=== PATIENT | male | born 1990 | race American Indian/Alaskan Native ===

== ENCOUNTER 2018-09-10 14:43 | Emergency (ER) | payer MEDICAID ==
--- NOTE | 2018-09-10 15:07 | Event Note ---
ED Screening Note Date of service: 09/10/18 Time: 15:04 ED Screening Note: This is a 28 y.o. M. that presents to the ER with left ankle pain and discoloration to left plantar foot x 1 week. He also reports right shoulder pain. This initial assessment/diagnostic orders/clinical plan/treatment(s) is/are subject to change based on patients health status, clinical progression and re- assessment by fellow clinical providers in the ED. Further treatment and workup at subsequent clinical providers discretion. Patient/guardian urged not to elope from the ED as their condition may be serious if not clinically assessed and managed. Initial orders include: XR right shoulder and left ankle
--- NOTE | 2018-09-10 16:17 | XRay Report ---
RIGHT SHOULDER 3 VIEWS INDICATION / CLINICAL INFORMATION: pain and swelling. COMPARISON: None available. FINDINGS: No significant skeletal abnormality Signer Name: Skinny Campbell MD [facility] Signed: 09/10/2018 4:13 PM Workstation Name: [id number]
--- NOTE | 2018-09-10 16:18 | XRay Report ---
LEFT ANKLE 3 VIEWS INDICATION / CLINICAL INFORMATION: pain and swelling lateral. COMPARISON: None available. FINDINGS: Diffuse soft tissue edema. No other significant skeletal abnormality. Signer Name: Skinny Campbell MD [employer] Signed: 09/10/2018 4:14 PM Workstation Name: [id number]
[2018-09-10] MEDS ORDERED: BOOSTRIX IM ONE (17:09)
--- NOTE | 2018-09-10 17:15 | Emergency Department Report ---
ED Extremity Problem HPI - General Chief complaint: Extremity Problem,Nontraumatic Stated complaint: LT ANKLE/FOOT PAIN/RT SHOULDER PAIN Time Seen by Provider: 09/10/18 15:04 Source: patient Mode of arrival: Ambulatory Limitations: No Limitations - History of Present Illness Initial comments: Patient is a 28 yo male who presents the emergency room with complaints of left ankle pain that began last week. He states that he was playing basketball and he jumped up and came back down and had an inversion injury. He states he has sprained this ankle in the past. He currently has an ankle brace on. He has not seen anyone for this injury. He has been ambulatory. He is also complaining of right shoulder pain that began a week ago. Denies any fall or injury. He states he just woke up with the pain after "sleeping wrong". He was also concerned about a blister on the bottom of his left foot. He denies any fever, drainage, redness. PMHx of schizophrenia. No allergies to medications. - Related Data Previous Rx's Medication Instructions Recorded Last Taken Type Famotidine [Pepcid] 20 mg PO BID #40 tablet 08/24/14 Unknown Rx Hyoscyamine Subl [Levsin Sl 0.125] 0.125 mg SL Q4HR PRN #20 tablet 08/24/14 Unknown Rx Promethazine [Phenergan TAB] 25 mg PO Q6HR PRN #20 tab 08/24/14 Unknown Rx Baclofen [Lioresal] 5 mg PO QHS PRN #10 tab 09/10/18 Unknown Rx Naproxen [EC-Naprosyn] 500 mg PO BID PRN #20 tablet. 09/10/18 Unknown Rx Allergies Allergy/AdvReac Type Severity Reaction Status Date / Time No Known Allergies Allergy Unverified 08/24/14 11:54 ED Review of Systems ROS: Stated complaint: LT ANKLE/FOOT PAIN/RT SHOULDER PAIN Other details as noted in HPI Comment: All other systems reviewed and negative ED Past Medical Hx - Past Medical History Hx Psychiatric Treatment: Yes (schizophrenia) - Surgical History Additional Surgical History: hernia repair - Social History Smoking Status: Never Smoker Substance Use Type: None - Medications Home Medications: Home Medications Medication Instructions Recorded Confirmed Last Taken Type Famotidine [Pepcid] 20 mg PO BID #40 tablet 08/24/14 Unknown Rx Hyoscyamine Subl [Levsin Sl 0.125] 0.125 mg SL Q4HR PRN #20 tablet 08/24/14 Unknown Rx Promethazine [Phenergan TAB] 25 mg PO Q6HR PRN #20 tab 08/24/14 Unknown Rx Baclofen [Lioresal] 5 mg PO QHS PRN #10 tab 09/10/18 Unknown Rx Naproxen [EC-Naprosyn] 500 mg PO BID PRN #20 tablet. 09/10/18 Unknown Rx ED Physical Exam - General Limitations: No Limitations General appearance: alert, in no apparent distress - Head Head exam: Present: atraumatic, normocephalic - Eye Eye exam: Present: normal appearance - ENT ENT exam: Present: mucous membranes moist - Extremities Exam Extremities exam: Present: other (TTP over the left lateral ankle with edema present, FROM of the left ankle, discomfort with flexion and internal rotation, neurovascularly intact, mild TTP over the right trapezius, FROM of the right shoulder, no AC joint tenderness, no sulcus sign, clavicles are equal, neurovacularly intact) - Neurological Exam Neurological exam: Present: alert, oriented X3 - Psychiatric Psychiatric exam: Present: normal affect, normal mood - Skin Skin exam: Present: warm, dry, intact, other (small hematoma to the dorsum of left foot, left big toe nail is cut to the quick, no drainage, no pus, no erythema ) ED Course Vital Signs 09/10/18 09/10/18 15:04 17:51 Temperature 98.5 F 97.9 F Pulse Rate 64 56 L Respiratory 18 18 Rate Blood Pressure 121/70 Blood Pressure 107/57 [Left] O2 Sat by Pulse 96 99 Oximetry ED Medical Decision Making - Radiology Data Radiology results: report reviewed RIGHT SHOULDER 3 VIEWS INDICATION / CLINICAL INFORMATION: pain and swelling. COMPARISON: None available. FINDINGS: No significant skeletal abnormality Signer Name: Skinny Campbell MD [facility] Signed: 09/10/2018 4:13 PM Workstation Name: [id number] Transcribed By: MS Dictated By: Skinny Campbell MD Electronically Authenticated By: Skinny Campbell MD Signed Date/Time: 09/10/18 1613 LEFT ANKLE 3 VIEWS INDICATION / CLINICAL INFORMATION: pain and swelling lateral. COMPARISON: None available. FINDINGS: Diffuse soft tissue edema. No other significant skeletal abnormality. Signer Name: Skinny Campbell MD [facility] Signed: 09/10/2018 4:14 PM Workstation Name: [email or web address] Transcribed By: MS Dictated By: Skinny Campbell MD Electronically Authenticated By: Skinny Campbell MD Signed Date/Time: 09/10/18 6004 - Medical Decision Making Patient is a 28 yo male who presents the emergency room with complaints of left ankle pain that began last week. He states that he was playing basketball and he jumped up and came back down and had an inversion injury. He states he has sprained this ankle in the past. He currently has an ankle brace on. He has not seen anyone for this injury. He has been ambulatory. He is also complaining of right shoulder pain that began a week ago. Denies any fall or injury. He states he just woke up with the pain after "sleeping wrong". He was also concerned about a blister on the bottom of his left foot. He denies any fever, drainage, redness. PMHx of schizophrenia. No allergies to medications. on exam: TTP over the left lateral ankle with edema present, FROM of the left ankle, discomfort with flexion and internal rotation, neurovascularly intact, mild TTP over the right trapezius, FROM of the right shoulder, no AC joint tenderness, no sulcus sign, clavicles are equal, neurovacularly intact, small hematoma to the dorsum of left foot, left big toe nail is cut to the quick, no drainage, no pus, no erythema, no sings of infection, appears to be just small amount of blood under the skin. XR right shoulder: No significant skeletal abnormality. XR left ankle: Diffuse soft tissue edema. No other significant skeletal abnormality. pt placed in ankle stirrup splint. given prescription for baclofen and naproxen. advised to please take medication as prescribed. do not drive or operate heavy machinery while taking medication. follow up with a primary care doctor and orthopedic doctor in the next 2-3 days. return to the emergency room for any new or worsening symptoms. - Differential Diagnosis strain, sprain, fx, dislocation Critical care attestation.: If time is entered above; I have spent that time in minutes in the direct care of this critically ill patient, excluding procedure time. ED Disposition Clinical Impression: Edema of left ankle Left ankle pain Qualifiers: Chronicity: acute Qualified Code(s): M25.572 - Pain in left ankle and joints of left foot Right shoulder pain Qualifiers: Chronicity: acute Qualified Code(s): M25.511 - Pain in right shoulder Disposition: TO HOME OR SELFCARE Is pt being admited?: No Does the pt Need Aspirin: No Condition: Stable Instructions: Ankle Sprain (ED), Shoulder Sprain (ED), Ankle Stirrup Splint (ED) Additional Instructions: please take medication as prescribed. do not drive or operate heavy machinery while taking medication. follow up with a primary care doctor and orthopedic doctor in the next 2-3 days. return to the emergency room for any new or worsening symptoms. Prescriptions: Baclofen [Lioresal] 5 mg PO QHS PRN #10 tab PRN Reason: Muscle Spasm Naproxen [EC-Naprosyn] 500 mg PO BID PRN #20 tablet.dr FERRARO Reason: pain Referrals: [facility] MD AMBERLY [Primary Care Provider] - 2-3 Days RENZO GUZMÁN MD [Staff Physician] - 2-3 Days Time of Disposition: 17:17 Print Language: LUX[place]
[2018-09-10 17:53] VITALS: BP 107/57
== END 2018-09-10 17:53 | disposition home or self-care (01) ==
LOC: ED 14:43
DX: S90.32XA Contusion of left foot, initial encounter (principal); R60.0 Localized edema; M25.511 Pain in right shoulder; F20.9 Schizophrenia, unspecified; Z79.899 Other long term (current) drug therapy; Z98.890 Other specified postprocedural states; X58.XXXA Exposure to other specified factors, initial encounter; Y93.67 Activity, basketball; Y92.89 Other specified places as the place of occurrence of the external cause; Y99.8 Other external cause status
CPT/HCPCS: 29540; 90471; 90715